=== PATIENT | female | born 1995 | race Caucasian/White ===

== ENCOUNTER 2018-01-23 14:39 | Emergency (ER) | payer OTHER ==
[2018-01-23] MEDS ORDERED: Dexamethasone IV* 4 MG/ML 1 ML (4 MG) IV SLOW PU ONE (15:49)
[2018-01-23] MEDS ORDERED: Famotidine IV* 10 MG/ML 2 ML (20 mg) IV SLOW PU ONE (15:49)
--- NOTE | 2018-01-23 15:49 | ED ---
Allergic Reaction/Systemic - HPI Summary HPI Summary: This pt is a 23 y/o female presenting to [facility] c/o allergic reaction s/p taking methylphenidate today. Pt reports she is allergic to corn starch and took 1 tablet of methylphenidate today to help study for her test tomorrow. She states this medications was a 2 year old prescription that she still had. Pt notes she began to have sore throat, scratchy throat, tingling in mouth and lips, difficulty breathing. Pt first took Benadryl 25 mg, then used her inhaler and also used her epipen. Pt currently denies any throat tightening, scratchy throat , difficulty breathing. Denies hives but states she currently feels pruritic all over. Pt has a long list of allergies including corn starch and gluten. Her dairy bar manager is Dr. Gil. - History of Current Complaint Chief Complaint: EDAllergicReaction Time Seen by Provider: 01/23/18 15:26 Hx Obtained From: Patient Onset/Duration: Sudden Onset, Still Present Timing: Lasting Hours Severity Currently: None Pain Intensity: 0 Pain Scale Used: 0-10 Numeric Location: Diffuse Character: Pruritus Aggravating Factor(s): Nothing Alleviating Factor(s): Antihistamines - benadryl, Epinephrine - epi pen Associated Signs And Symptoms: Positive: Difficulty Breathing, Throat Tightening , Other: - tingling in mouth and lips, scratchy throat - Allergies/Home Medications Allergies/Adverse Reactions: Allergies Allergy/AdvReac Type Severity Reaction Status Date / Time beeswax Allergy Anaphylatic Verified 01/23/18 14:55 Shock casein Allergy Anaphylatic Verified 01/23/18 14:55 Shock corn Allergy Anaphylatic Verified 01/23/18 14:55 Shock corn syrup Allergy Anaphylatic Verified 01/23/18 14:55 Shock cornflower Allergy Anaphylatic Verified 01/23/18 14:55 Shock gluten Allergy Diarrhea Verified 01/23/18 14:55 honey Allergy Anaphylatic Verified 01/23/18 14:55 Shock oats Allergy Diarrhea Verified 01/23/18 14:55 peanut Allergy Anaphylatic Verified 01/23/18 14:55 Shock peanut oil Allergy Anaphylatic Verified 01/23/18 14:55 Shock shellfish derived Allergy Anaphylatic Verified 01/23/18 14:55 Shock soy Allergy Anaphylatic Verified 01/23/18 14:55 Shock soybean Allergy Anaphylatic Verified 01/23/18 14:55 Shock Tree Nuts Allergy Anaphylatic Verified 01/23/18 14:55 Shock wheat Allergy Diarrhea Verified 01/23/18 14:55 xanthan gum Allergy Anaphylatic Verified 01/23/18 14:55 Shock rye Allergy Diarrhea Uncoded 01/23/18 14:55 sorgum Allergy Anaphylatic Uncoded 01/23/18 14:55 Shock sunscreen Allergy Hives Uncoded 01/23/18 14:55 Home Medications: Home Medications Albuterol HFA INHALER* [Ventolin HFA Inhaler*] 1 puff INH Q6H PRN 01/23/18 [ History Confirmed 01/23/18] Multivitamin [Multivitamins] 1 cap PO DAILY 01/23/18 [History Confirmed 01/23/18 ] Thayer-3 Fatty Acids/Fish Oil [Fish Oil 1,000 mg Capsule] 1 each PO DAILY [History Confirmed 01/23/18] PMH/Surg Hx/FS Hx/Imm Hx Endocrine/Hematology History: Denies: Hx Diabetes, Hx Thyroid Disease Cardiovascular History: Denies: Hx Hypercholesterolemia, Hx Hypertension, Hx Pacemaker/ICD, Hx Peripheral Vascular Disease Respiratory History: Denies: Hx Asthma History: Denies: Hx Dialysis, Hx Renal Disease Musculoskeletal History: Denies: Hx Arthritis, Hx Osteoporosis Sensory History: Denies: Hx Cataracts, Hx Contacts or Glasses, Hx Glaucoma, Hx Hearing Aid Opthamlomology History: Denies: Hx Cataracts, Hx Contacts or Glasses, Hx Glaucoma Neurological History: Denies: Hx Headaches, Hx Seizures, Hx Transient Ischemic Attacks (TIA) Psychiatric History: Denies: Hx Anxiety, Hx Depression, Hx Panic Disorder Infectious Disease History: No Infectious Disease History: Denies: Traveled Outside the [place] in Last 30 Days - Family History Family History: Mother and father with long list of allergies - Social History Alcohol Use: None Substance Use Type: Reports: None Smoking Status (MU): Never Smoked Tobacco Review of Systems Negative: Fever, Chills ENT: Other - throat tightening, scratchy throat (now all resolved) Positive: Shortness Of Breath - (now resolved) Skin: Other - feeling pruritic all over Positive: Paresthesia - in mouth and lips (now resolved) All Other Systems Reviewed And Are Negative: Yes Physical Exam - Summary Physical Exam Summary: Appearance: Well appearing, no pain distress Skin: warm, dry, reflects adequate perfusion Head/face: normal Eyes: EOMI, DUSTIN ENT: normal Neck: supple, non-tender Respiratory: CTA, breath sounds present Cardiovascular: RRR, pulses symmetrical Abdomen: non-tender, soft Bowel: present Musculoskeletal: normal, strength/ROM intact Neuro: normal, sensory motor intact, A&Ox3 Triage Information Reviewed: Yes Vital Signs On Initial Exam: Initial Vitals Temp Pulse Resp BP Pulse Ox 97.5 F 124 20 138/83 100 01/23/18 14:45 01/23/18 14:45 01/23/18 14:45 01/23/18 14:45 01/23/18 14:45 Vital Signs Reviewed: Yes Diagnostics - Vital Signs Vital Signs Temp Pulse Resp BP Pulse Ox 01/23/18 15:27 98 F 100 17 114/74 99 01/23/18 14:45 97.5 F 124 20 138/83 100 - Laboratory Lab Statement: Any lab studies that have been ordered have been reviewed, and results considered in the medical decision making process. Re-Evaluation - Re-Evaluation First Eval Re-Evaluation Time: 17:04 Change: Improved Comment: Pt reports feeling better. Allergic Reaction Course/Dx - Course Course Of Treatment: Patient with purported severe allergies tickborne, cornstarch who felt as though she had reaction to her Ritalin tablet. She gave herself epinephrine at home and has no symptoms at present. I did give her IV Pepcid, steroids here and will prescribe nothing further as she is very sensitive to oral medications. She was refilled and her EpiPen. She'll follow- up with her dairy bar manager. - Diagnoses Provider Diagnoses: Allergic reaction - Provider Notifications Discussed Care Of Patient With: Pharmacy Time Discussed With Above Provider: 15:46 Instructed by Provider To: Other - I spoke with pharmacy and they report IV formulation is perfectly safe for the pt. Discharge - Sign-Out/Discharge Documenting (check all that apply): Patient Departure - Discharge - Discharge Plan Condition: Improved Disposition: HOME Prescriptions: EPINEPHrine [Epipen 2-Luis Armando] 0.3 mg IM ONCE PRN #1 box PRN Reason: severe allergy Patient Education Materials: General Allergic Reaction (ED) Referrals: Cherrie Gil MD [Medical Doctor] - No Primary Care Phys,NOPCP [Primary Care Provider] - Additional Instructions: Call your dairy bar manager first thing in the morning to follow-up. Return if worse, new symptoms or other concerns. EpiPen for severe allergy symptoms. - Billing Disposition and Condition Condition: IMPROVED Disposition: Home
[2018-01-23 17:11] VITALS: BP 115/81
== END 2018-01-23 17:10 | disposition home or self-care (01) ==
LOC: ED 14:39
DX: R20.2 Paresthesia of skin (principal); J02.9 Acute pharyngitis, unspecified; R06.9 Unspecified abnormalities of breathing; T43.635A Adverse effect of methylphenidate, initial encounter; Y92.9 Unspecified place or not applicable; Z91.02 Food additives allergy status; Z91.010 Allergy to peanuts; Z91.018 Allergy to other foods
CPT/HCPCS: 96374; 96375; 99282; J1100